=== PATIENT | male | born 2000 | race Caucasian/White ===

== ENCOUNTER 2021-06-22 23:16 | Emergency (ER) | payer MEDICAID, OTHER ==
[~2021-06-22] VITALS: Ht 172.7 cm; Wt 72.6 kg
[2021-06-22 23:16] VITALS: BP 124/79
[2021-06-23] MEDS ORDERED: ACETAMINOPHEN 325 MG TABLET PO ONE
[2021-06-23] MEDS ORDERED: ACETAMINOPHEN 325 MG TABLET ONE (00:04)
--- NOTE | 2021-06-23 00:07 | NUR ---
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
[2021-06-23] MEDS ORDERED: IBUP-1953 PO (01:27)
== END 2021-06-23 01:45 | disposition home or self-care (01) ==
LOC: ER 23:22
DX: S93.492A Sprain of other ligament of left ankle, initial encounter (principal); Z79.1 Long term (current) use of non-steroidal anti-inflammatories (NSAID); X50.1XXA Overexertion from prolonged static or awkward postures, initial encounter; Y93.67 Activity, basketball; Y92.89 Other specified places as the place of occurrence of the external cause; Y99.8 Other external cause status
CPT/HCPCS: 73610-TC; 73630-TC